=== PATIENT | male | born 1995 | race African-American/Black ===

== ENCOUNTER 2022-06-17 15:54 | Emergency (ER) | payer BC, MEDICAID ==
[~2022-06-17] VITALS: Ht 180.3 cm; Wt 82.0 kg
[2022-06-17] MEDS ORDERED: IPRATROPIUM BROMIDE (0.02%) 0.5MG/2.5ML NEB HHN STA (16:14)
[2022-06-17] MEDS ORDERED: METHYLPREDNISOLONE SOD SUCC 125 MG/2 ML VIAL IV STA (16:14)
[2022-06-17] MEDS ORDERED: ALBUTEROL (0.083%) 2.5MG/3ML NEB HHN STA (16:14)
[2022-06-17 16:42] LABS: BASOPHILS % 0.2 % (0.0-2.0); EOSINOPHILS % 1.1 % (0.0-5.0); HEMATOCRIT. 44.2 % (42.0-52.0); HEMOGLOBIN. 15.2 g/dL (14.0-18.0); LYMPHOCYTES % 41.9 % (20.0-50.0); MEAN CORPUSCULAR HEMOGLOBIN 28.1 pg (28.0-32.0); MEAN CORPUSCULAR VOLUME 81.9 fL (80.0-94.0); MEAN PLATELET VOLUME 8.1 fl (7.4-10.4); MONOCYTES % 7.1 % (2.0-8.0); NEUTROPHILS % 49.7 % (40.0-76.0); PLATELET 260 x1000/uL (130-400); RED CELL DISTRIBUTION WIDTH 13.7 % (11.6-14.6)
[2022-06-17 16:57] LABS: CHLORIDE 104 mEq/L (98-107)
[2022-06-17] MEDS ORDERED: ALBU6.7H3 INH (18:31)
[2022-06-17] MEDS ORDERED: P20 MT (18:31)
[2022-06-17 18:48] VITALS: BP 127/93
== END 2022-06-17 18:49 | disposition home or self-care (01) ==
LOC: ER 15:54
DX: J45.901 Unspecified asthma with (acute) exacerbation (principal)
CPT/HCPCS: 36415; 71045; 80053; 85025; 93005; 94644; 96374; 99285; J2930; Z7610

== ENCOUNTER 2022-08-17 18:41 | Emergency (ER) | payer MEDICAID, OTHER ==
[~2022-08-17] VITALS: Ht 172.7 cm; Wt 86.1 kg
[~2022-08-17 18:41] MED LIST: ALBU6.7H3 INH; P20 MT
[2022-08-17 19:07] VITALS: BP 129/79
[2022-08-17] MEDS ORDERED: DEXAMETHASONE 4MG TABLET PO ONE (20:30)
[2022-08-17] MEDS ORDERED: IPRATROPIUM/ALBUTEROL 0.5-3(2.5)MG/3ML NEB HHN ONE (20:30)
[2022-08-17] MEDS ORDERED: ONDANSETRON HCL 4MG/2ML INJ IV ONE (21:15)
[2022-08-17] MEDS ORDERED: DIPHENHYDRAMINE 50MG/ML VIAL IV ONE (21:15)
[2022-08-17] MEDS ORDERED: FAMOTIDINE 20MG/2ML VIAL IV ONE (21:15)
[2022-08-18] MEDS ORDERED: ALBU6.7H3 INH (01:09)
[2022-08-18] MEDS ORDERED: EPIN0.3P3 IM (01:09)
[2022-08-18] MEDS ORDERED: BENZ100C86 MT (01:09)
== END 2022-08-18 01:39 | disposition home or self-care (01) ==
LOC: ER 18:41
DX: J45.901 Unspecified asthma with (acute) exacerbation (principal)
CPT/HCPCS: 94640; 96374; 96375; 99284; J1200; J2405; J3490; J8540; Z7610